=== PATIENT | female | born 1975 | race Caucasian/White ===

== ENCOUNTER 2017-07-21 09:03 | Emergency (ER) | payer BC, OTHER ==
[2017-07-21] MEDS ORDERED: Albuterol 2.5 MG/3 ML NEB.SOL* (0.083%) INH ONE (10:38)
[2017-07-21] MEDS ORDERED: Ipratropium 0.5MG/2.5ML NEB* 0.5 MG/2.5 ML NEB.SOLN INH ONE (10:38)
[2017-07-21 11:44] VITALS: BP 150/96
--- NOTE | 2017-07-21 13:17 | UC ---
Olga Goncalves Thomas, scribed for Haley Epps DO on 07/21/17 at 1044 . Cardiac HPI - HPI Summary HPI Summary: The patient is a 42 year old female who reports a baseline dry cough that has been present for years. She has the cough year-round and it is worsened with the cold. She has tried inhalers, nasal sprays, and OTC allergy medication to no relief. In the last few days, her cough has considerably worsened. She comes in today complaining of left-sided chest pain and mild shortness of breath. She also complains of nasal congestion and a sore throat. She denies sinus pressure , ear ache, headache, nausea, vomiting, abdominal pain, and urinary symptoms. - History of Current Complaint Chief Complaint: UCGeneralIllness Stated Complaint: COUGH SHORT OF BREATH Time Seen by Provider: 07/21/17 09:07 Hx Obtained From: Patient Hx Last Menstrual Period: 07/17/17 Onset/Duration: Still Present, Worse Since - last few days Pain Intensity: 4 Chest Pain Location: Discrete at: - left-sided Aggravating Factor(s): Other - Cold Alleviating Factor(s): Nothing Associated Signs & Symptoms: Positive: Chest Pain, SOB, Cough - Allergy/Home Medications Allergies/Adverse Reactions: Allergies Allergy/AdvReac Type Severity Reaction Status Date / Time oxycodone Allergy Hives Verified 07/21/17 09:13 Home Medications: Home Medications Escitalopram Oxalate [Lexapro 10 mg] 10 mg PO DAILY 07/21/17 [History Confirmed 07/21/17] PMH/Surg Hx/FS Hx/Imm Hx Endocrine History: Other Other Endocrine History: NEGATIVE: DM Respiratory History: Other Other Respiratory History: Chronic cough - Surgical History Surgical History: Yes Surgery Procedure, Year, and Place: 3 c-sections. cholecystectomy. Tubal ligation. umbilical hernia repair at 3mo. - Family History Known Family History: Positive: Hypertension - Social History Alcohol Use: Rare Substance Use Type: None Smoking Status (MU): Former Smoker Have You Smoked in the Last Year: No When Did the Patient Quit Smoking/Using Tobacco: 2007 - Immunization History Most Recent Influenza Vaccination: 2013 Most Recent Tetanus Shot: UTD Review of Systems ENT: Sore Throat, Nasal Discharge Respiratory: Shortness Of Breath, Cough Cardiovascular: Chest Pain Is Patient Immunocompromised?: No All Other Systems Reviewed And Are Negative: Yes Physical Exam - Summary Physical Exam Summary: Appearance: Well-Appearing, No Pain Distress, Well-Nourished Eyes: conjunctiva clear, no discharge ENT: Hearing grossly normal, no muffled/hoarse voice. She has suborbital congestion. Neck: Normal, Supple Respiratory/Lung Sounds: Scattered wheezes. No respiratory distress, No accessory muscle use Cardiovascular: RRR, No murmur Musculoskeletal: Normal Neurological: Alert, muscle tone normal Psychiatric:Normal, age appropriate behavior Skin: Normal, Warm, Dry, Normal color Triage Information Reviewed: Yes Vital Signs: Initial Vital Signs Temp 98.7 F 07/21/17 09:24 Pulse 85 07/21/17 09:24 Resp 18 07/21/17 09:24 BP 149/88 07/21/17 09:24 Pulse Ox 97 07/21/17 09:24 Vital Signs Reviewed: Yes Diagnostics - Laboratory Diagnostic Studies Completed/Ordered: EKG. Obtained at 0914. Sinus rhythm at [address] changes. Re-Evaluation - Re-Evaluation First Eval Change: Improved Comment: After nebulizer treatment, the patient's scattered wheezes are gone. - Assessment/Plan Course Of Treatment: The patient is a 42 year old female who reports a baseline dry cough that has been present for years. In the last few days, her cough has considerably worsened and she now complains of shortness of breath and left- sided chest pain. In the [facility] course the patient was given Ventolin and Atrovent. After nebulizer treatment, the patient's wheezes are gone. EKG shows sinus rhythm with no ST changes. Medications reviewed. Allergies reviewed. High blood pressure noted. Patient will be discharged with prescription for Ventolin and Mucinex and will follow up with PCP. The patient is agreeable with this plan. - Clinical Impression Provider Diagnoses: Allergies, Bronchospasm Discharge - Sign-Out/Discharge Documenting (check all that apply): Discharge/Admit/Transfer - Discharge Plan Condition: Stable Disposition: HOME Prescriptions: Albuterol HFA INHALER* [Ventolin HFA Inhaler*] 2 puff INH Q4H PRN #1 mdi PRN Reason: Sob/Wheezing guaiFENesin ER TAB [Mucinex*] 600 mg PO BID PRN #1 box PRN Reason: Cough Patient Education Materials: Allergies (ED), Bronchospasm (ED) Referrals: Melody Hoffman NP [Primary Care Provider] - If Needed Additional Instructions: TRY USING THE NETTI POT IN THE MORNINGS DISCUSSED. YOU MUST ALWAYS USE CLEAN WATER. REMEMBER, POSTURE IS AN IMPORTANT FACTOR IN SINUS DRAINAGE. MOVE YOUR NECK, BREATHE. INHALED BRONCHODILATORS: You have received a prescription for an inhaled bronchodilator -- a medication which stimulates the airways in the lung to dilate. This improves the flow of air in asthma, bronchitis, and emphysema. These medicines have some similarity to adrenaline, and can cause similar side effects: shakiness, racing heart, and a sense of nervousness. These side effects decrease with time. Contact your doctor if these side effects are severe. Do not over-use the medicine. Too-frequent use of the inhaler may make it ineffective. Call your doctor if the inhaler is not controlling your symptoms at the prescribed doses. BRING THE SPACER WE GAVE YOU TO THE PHARMACY WITH YOU SO THE PHARMACIST CAN SHOW YOU HOW TO USE IT. EXPECTORANT MEDICATION: WE SENT IN A SCRIPT FOR MUCINEX SO THAT IT IS EASIER FOR YOU TO PICK THE RIGHT MED AT THE PHARMACY. HOWEVER, YOU CAN ALSO GO TO THE [facility] AND BUY PLAIN GUAIFENESIN WITHOU BINDERS OR FILLERS. An expectorant medicine has been prescribed. This type of drug makes mucous thinner, helping the sinuses, nose, and bronchial tubes to remain free of pus and mucous. Expectorants make a cough less severe and more comfortable, and help infected sinuses drain. In general, antihistamines defeat the purpose of the expectorant by making mucous thicker. They should be avoided unless specifically recommended by your physician. The documentation as recorded by the Olga palafox Thomas accurately reflects the service I personally performed and the decisions made by me, Haley Epps DO.
== END 2017-07-21 11:48 | disposition home or self-care (01) ==
LOC: UCEAST 09:03
DX: T78.40XA Allergy, unspecified, initial encounter (principal); J98.01 Acute bronchospasm; Z88.5 Allergy status to narcotic agent; Z87.891 Personal history of nicotine dependence
CPT/HCPCS: 93005; 99212; G0463

== ENCOUNTER 2018-10-02 08:49 | Emergency (ER) | payer BC, OTHER ==
--- OUTSIDE RECORDS SUMMARY | 2018-10-02 08:58 | XMS REPORT | Continuity of Care Document ---
:1975 External Reference #:[id number] Author Name Carolyn Del Cid Care Team Providers Name Role Phone Peri Zayas MD Primary Care Physician Unavailable Payers Date Identification Numbers Payment Provider Subscriber Policy Number: [id number] [employer] Peyman Chalino Wenceslao PayID: [id number] [address] [address] [place] [address] Problems Description No Active Problems Family History Date Family Member(s) Observation Comments Father Hypertension Hyperlipidemia Mother Hypertension Siblings 3 Brothers Social History Type Date Description Comments Sex Unknown Marital Status Single ETOH Use Currently consumes alcohol 1 per week Tobacco Use Start: Unknown End: Patient is a former smoker Quit age 31; max 3-4 Unknown cigarettes/weekend in social situations. Began age 24 Tobacco Use Start: Unknown End: Patient is a former smoker Unknown Smoking Status Reviewed: 09/26/18 Patient is a former smoker Allergies, Adverse Reactions, Alerts Active Allergies Reaction Severity Comments Date Percocet Nausea and Vomiting, Urticaria Severe 04/29/2011 Medications Active Medications SIG Qnty Indications Ordering Date Provider Asmanex HFA 2 inhalations twice Margot Mays NP 12/01/2016 daily (sample) 200mcg/Act Aerosol Fluticasone Use 2 Sprays Into 16units Margot Mays NP 12/01/2016 Propionate Each Nostril Daily 50mcg/Act Suspension Alprazolam one by mouth up to 20tabs F41.9 Melody Varlily, 06/24/2016 0.25mg three times daily N.P. Tablets as needed for anxiety Escitalopram Oxalate Take 1 Tablet By 30tabs F32.9 Melody Varlily, 2016 Mouth Every Day N.P. 10mg Tablets Ibuprofen po qday Melody Hoffman, 12/18/2012 600mg N.P. History Medications Sumatriptan use at onset of 12tabs 346.90 Melody Hoffman, 12/18/2012 - Succinate head ache,july N.P. 08/26/2015 100mg repeat after 2h Tablets prn, max 2 tab in 24 hour Topiramate one po hs 30tabs 346.90 Melody Iglesiaslily, 12/18/2012 - 50mg N.P. 08/26/2015 Tablets Sumatriptan take 1 tablet by 16tabs 346.90 Melody Iglesiaslily, 11/09/2012 - Succinate mouth if needed N.P. 12/18/2012 50mg --- max 4/day Tablets and 16/ Ondansetron HCL one by mouth 30tabs 346.90 Melody Hoffman, 11/09/2012 - 4mg every 8 hours as N.P. 12/18/2012 Tablets needed for nausea No Active Unknown 05/05/2011 - Medications 11/09/2012 Azithromycin two tabs day 6tabs 462 Peri Marquez, 04/29/2011 - 250mg one, one daily M.D. 05/05/2011 Tablets till gone Naproxen 1 po prn 60tabs Unknown - 500mg 12/18/2012 Tablets Tramadol HCL 1 po prn 100tabs Unknown - 50mg 12/18/2012 Tablets Medications Administered in Office Medication SIG Qnty Indications Ordering Provider Date PPD Injection Nurse Visit A 03/30/2011 Immunizations CPT Code Status Date Vaccine Lot # [id number] Given 11/23/2016 Influenza Virus Vaccine, Quadrivalent, Split, [id number] Preservative Free [id number] Given 06/27/2006 Tdap - Tetanus/Diptheria/Acellular Pertussis [id number] Given 06/27/2006 Tdap - Tetanus/Diptheria/Acellular Pertussis Vital Signs Date Vital Result Comment 09/26/2018 2:07pm Height 68.5 inches 5'8.50" Weight 228.00 lb Heart Rate 90 /min BP Systolic Sitting 131 mmHg BP Diastolic Sitting 88 mmHg Body Temperature 98.3 F O2 % BldC Oximetry 97 % BMI (Body Mass Index) 34.2 kg/m2 09/27/2017 8:19am Height 68.5 inches 5'8.50" Weight 219.75 lb Heart Rate 89 /min BP Systolic 114 mmHg BP Diastolic 76 mmHg Body Temperature 97.5 F O2 % BldC Oximetry 97 % BMI (Body Mass Index) 32.9 kg/m2 09/12/2017 3:36pm Height 68.5 inches 5'8.50" Weight 220.00 lb Heart Rate 99 /min BP Systolic 124 mmHg BP Diastolic 78 mmHg Body Temperature 98.4 F O2 % BldC Oximetry 98 % BMI (Body Mass Index) 33.0 kg/m2 12/01/2016 9:27am Weight 213.00 lb Heart Rate 89 /min BP Systolic Sitting 124 mmHg BP Diastolic Sitting 86 mmHg Body Temperature 98.5 F O2 % BldC Oximetry 98 % 11/23/2016 2:46pm Height 69 inches 5'9" Weight 214.25 lb Heart Rate 98 /min BP Systolic Sitting 122 mmHg BP Diastolic Sitting 86 mmHg Body Temperature 98.2 F O2 % BldC Oximetry 99 % BMI (Body Mass Index) 31.6 kg/m2 06/24/2016 4:19pm Weight 214.50 lb Heart Rate 102 /min BP Systolic 142 mmHg BP Diastolic 90 mmHg Body Temperature 97.3 F O2 % BldC Oximetry 99 % 08/26/2015 3:55pm Weight 221.00 lb Heart Rate 96 /min BP Systolic Sitting 126 mmHg BP Diastolic Sitting 84 mmHg Respiratory Rate 15 /min Body Temperature 98.2 F O2 % BldC Oximetry 98 % 12/18/2012 9:16am Weight 225.25 lb Heart Rate 88 /min BP Systolic 130 mmHg BP Diastolic 68 mmHg 11/09/2012 9:41am Weight 227.00 lb Heart Rate 82 /min BP Systolic Sitting 126 mmHg BP Diastolic Sitting 84 mmHg 05/05/2011 11:18am Height 69 inches 5'9" Weight 213.00 lb Heart Rate 104 /min BP Systolic Sitting 136 mmHg BP Diastolic Sitting 68 mmHg Body Temperature 99.0 F BMI (Body Mass Index) 31.5 kg/m2 04/29/2011 10:38am Height 69 inches 5'9" Weight 213.50 lb Heart Rate 64 /min BP Systolic Sitting 110 mmHg BP Diastolic Sitting 74 mmHg Body Temperature 98.3 F BMI (Body Mass Index) 31.5 kg/m2 08/11/2010 2:23pm Height 69 inches 5'9" Weight 207.00 lb Heart Rate 76 /min BP Systolic 120 mmHg BP Diastolic 84 mmHg Body Temperature 76.0 F BMI (Body Mass Index) 30.6 kg/m2 Results Test Date Facility Test Result H/L Range Note Urine Culture And 09/27/2017 [facility] Urine Culture SEE RESULT 1, [address] [place] [address] [phone] Ua Routine 09/27/2017 [facility] Ua Specific [address] [place] Ua PH 5 Ua Color lamar Ua Appera clear Ua WBC negative Ua Protein trace Ua Glucose negative Ua Ketones negative Ua Bilirubin negative Ua Urobilinogen negative Ua Nitrite negative Ua Occult Blood 50 CBC Auto Diff 09/12/2017 [facility] White Blood 10.3 10^3/uL N 3.5-10.[address] [place] [address] [phone] Red Blood Count 4.62 10^6/uL N 4.00-5.40 Hemoglobin 11.9 g/dL Low 12.0-16.0 Hematocrit 36 % N 35-47 Mean Corpuscular Volume 78 fL Low 80-97 Mean Corpuscular Hemoglobin 26 pg Low 27-31 Mean Corpuscular HGB Conc 33 g/dL N 31-36 Red Cell Distribution Width 17 % High 10.5-15 Platelet Count 238 10^3/uL N 150-450 Mean Platelet Volume 9.0 um3 N 7.4-10.4 Abs Neutrophils 6.9 10^3/uL N 1.5-7.7 Abs Lymphocytes 2.6 10^3/uL N 1.0-4.8 Abs Monocytes 0.5 10^3/uL N 0-0.8 Abs Eosinophils 0.2 10^3/uL N 0-0.6 Abs Basophils 0.1 10^3/uL N 0-0.2 Abs Nucleated RBC 0 10^3/uL Granulocyte % 67.1 % N 38-83 Lymphocyte % 25.6 % N 25-47 Monocyte % 4.6 % N 0-7 Eosinophil % 1.9 % N 0-6 Basophil % 0.8 % N 0-2 Nucleated Red Blood Cells % 0 Comp Metabolic Panel 09/12/2017 [facility] Sodium 138 mmol/L N 135-[address] [place] [address] [phone] Potassium 4.0 mmol/L N 3.5-5.0 Chloride 104 mmol/L N 101-111 Co2 Carbon Dioxide 27 mmol/L N 22-32 Anion Gap 7 mmol/L N 2-11 Glucose 103 mg/dL High 70-100 Blood Urea Nitrogen 13 mg/dL N 6-24 Creatinine 0.95 mg/dL N 0.51-0.95 BUN/Creatinine Ratio 13.7 N 8-20 Calcium 9.3 mg/dL N 8.6-10.3 Total Protein 7.3 g/dL N 6.4-8.9 Albumin 4.1 g/dL N 3.2-5.2 Globulin 3.2 g/dL N 2-4 Albumin/Globulin Ratio 1.3 N 1-3 Total Bilirubin 0.40 mg/dL N 0.2-1.0 Alkaline Phosphatase 47 U/L N 34-104 Alt 12 U/L N 7-52 Ast 14 U/L N 13-39 Egfr Non- 65.2 >60 Egfr 78.8 >60 3 Laboratory test 09/12/2017 [facility] C Reactive 1.09 mg/L N < 8.[address] [place] [address] [phone] Erythrocyte Sed Rate 17 mm/Hr High 0-14 Rapid Influenza 06/29/2015 [facility] Influenza A NEGATIVE N Negative 4 A & B Molecular [address] [place] [address] [phone] Influenza B Molecular NEGATIVE N Negative Laboratory test 06/29/2015 [facility] Rapid Strep Negative N Negative [address] [place] [address] [phone] CBC With Manual 12/24/2012 [facility] White Blood 7.9 10^3/uL 4.8-10.[address] [place] [address] [phone] Red Blood Count 4.80 10^6/uL 4.0-5.4 Hemoglobin 13.9 g/dL 12.0-16.0 Hematocrit 43 % 35-47 Mean Corpuscular Volume 89 fL 80-97 Mean Corpuscular Hemoglobin 29 pg 27-31 Mean Corpuscular HGB Conc 33 g/dL 31-36 Red Cell Distribution Width 13 % 10.5-15 Platelet Count 201 10^3/uL 150-450 Mean Platelet Volume 9 um3 7.4-10.4 Abs Neutrophils 4.6 10^3/uL 1.5-7.7 Abs Lymphocytes 2.7 10^3/uL 1.0-4.8 Abs Monocytes 0.4 10^3/uL 0-0.8 Abs Eosinophils 0.2 10^3/uL 0-0.6 Abs Basophils 0 10^3/uL 0-0.2 Abs Nucleated RBC 0.01 10^3/uL Neutrophil % 60 % 38-83 Lymphocytes % 30 % 25-47 Monocytes % 7 % 0-13 Eosinophils % 1 % 0-6 Basophil % 1 % 0-2 Reactive Lymph % 1 % 0-6 RBC Morphology Normal Normal Laboratory test 12/24/2012 [facility] TSH (Thyroid 2.24 0.34- 5.60 6 finding 101 [facility] Stimulating miu/[place] [address] Horm) [phone] Follicle Stimulating Hormone 6.53 miu/mL 7 Laboratory test 04/29/2011 [facility] Monospot POSITIVE Abnormal Negative finding [address] [place] [address] [phone] Comp Metabolic 05/18/2010 [facility] Sodium 135 mmol/L 135- 145 Panel [address] [place] [address] [phone] Potassium 4.3 mmol/L 3.5-5.0 Chloride 108 mmol/L 101-111 Co2 (Carbon Dioxide) 20.0 mmol/L Low 22-32 Anion Gap 7.0 mmol/L 2-11 8 Glucose 94 mg/dL 70-100 BUN 11 mg/dL 6-24 Creatinine 1.00 mg/dL 0.50-1.40 One Over Creatinine 1.00 BUN/Creatinine Ratio 11.0 8-20 Calcium 9.3 mg/dL 8.1-9.9 Total Protein 7.3 GM/DL 6.2-8.1 Albumin 3.8 GM/DL 3.6-5.4 Globulin 3.5 GM/DL 2-4 Albumin/Globulin Ratio 1.1 1-3 Bilirubin Total 0.4 mg/dL 0.4-1.5 9 Alkaline Phosphatase 66 U/L 30-110 Alt (SGPT) 18 U/L 14-54 Ast (Sgot) 17 U/L 12-42 eGFR Non- 64.3 > 60 eGFR 82.6 > 60 10 Laboratory test finding 05/18/2010 [facility] Amylase 70 U/L 20-[address] [place] [address] [phone] Lipase 28 U/L 22-51 CBC Auto Diff 05/18/2010 [facility] White Blood 10.0 CUMM 4.8 -10.[address] [place] [address] [phone] Red Cell Count 4.70 CUMM 4.2-5.4 Hemoglobin 13.6 g/dL 12.0-16.0 Hematocrit 40 % 35-47 Mean Corpuscular Volume 84 um3 79-97 Mean Corpuscular Hemoglob 29 pg 27-31 Mean Corpuscular HGB Cone 34 g/dL 32-36 Redcell Distribution WDTH 14 % 10.5-15 Platelet Count 212 CUMM 150-450 Mean Platelet Volume 9.2 um3 7.4-10.4 12 Manual Differential 05/18/2010 [facility] Polysegmented 72 % 38-[address] [place] [address] [phone] Lymphocyte 25 % 25-47 Monocyte 3 % 0-13 Absolute Neutrophil Count 7.2 Anisocytosis SLIGHT Ovalocytes FEW H. Pylori 05/18/2010 [facility] H. Pylori Igg <0.75 Index () [address] [place] [address] [phone] H. Pylori Igm AB Positive Negative H. Pylori Iga AB Negative Negative 1 [id number] 2 SEE RESULT BELOW Name: MASSIEL QUINONES : [address]: Melody Hoffman NP Acct: [id number] Unit: [id number] AGE: 42 Location: [facility] Re09/27/17 SEX: F Status: REG REF SPEC: [id number] ANDREW: 09/27/17-[address]: Melody Hoffman NP REQ: [id number] RECD: 09/27/17-1103 STATUS: COMP _ SOURCE: URINE SPDESC: ORDERED: Urine Culture COMMENTS: [id number] Procedure Result Reported Site Urine Culture Final 09/28/17- 1334 ML No Growth (<1,000 CFU/mL) * ML - Main Lab . END OF REPORT DEPARTMENT OF PATHOLOGY, [address] [place] [id number] Aydin Gregorio M.D. Director [facility] # [id number] 3 Because ethnic data is not always readily available, this report includes an eGFR for both -Americans and non- Americans. The National Kidney Disease Education Program (NKDEP) does not endorse the use of the MDRD equation for patients that are not between the ages of 18 and 70, are , have extremes of body size, muscle mass, or nutritional status, or are non- or non-. According to the National Kidney Foundation, irrespective of diagnosis, the stage of the disease is based on the level of kidney function: Stage Description GFR(mL/min/1.73 m(2)) 1 Kidney damage with normal or decreased GFR 90 2 Kidney damage with mild decrease in GFR 60-89 3 Moderate decrease in GFR 30-59 4 Severe decrease in GFR 15-29 5 Kidney failure <15 (or dialysis) 4 Weather Algorithm Scientist: DESI ORDONEZ 5 Weather Algorithm Scientist: DESI ORDONEZ Due to the increased sensitivity of molecular testing, reflex cultures are no longer performed. 6 PLEASE GET DONE ON DAY 3 OF PERIOD 7 Normally menstruating females - Follicular phase 3 - 9 - Mid-cycle peak 4 - 23 - Luteal phase 1 - 6 Postmenopausal females 16 - 114 8 Anion gap measurement may be of limited value in the presence of any alkalosis, especially in a combined acid base disorder. . 9 A metabolite of Naproxen, O-desmethylnaproxen, has been shown to interfere with the Jendrassik-Ari method for measuring total bilirubin. Samples from patients who have taken Naproxen have shown spurious elevation in total bilirubin levels. 10 Because ethnic data is not always readily available, this report includes an eGFR for both -Americans and non- Americans. The National Kidney Disease Education Program (NKDEP) does not endorse the use of the MDRD equation for patients that are not between the ages of 18 and 70, are , have extremes of body size, muscle mass, or nutritional status, or are non- or non-. According to the National Kidney Foundation, irrespective of diagnosis, the stage of the disease is based on the level of kidney function: Stage Description GFR(mL/min/1.73 m(2)) 1 Kidney damage with normal or decreased GFR 90 2 Kidney damage with mild decrease in GFR 60-89 3 Moderate decrease in GFR 30-59 4 Severe decrease in GFR 15-29 5 Kidney failure <15 (or dialysis) 11 PLEASE NOTE NEW REFERENCE RANGE. 12 Imm. NE 1 13 -- REFERENCE VALUE -- <0.75 (negative) 0.75-0.99 (equivocal) >=1.00 (positive) Test Performed by: [facility] Dpt of Lab Med and Pathology [address] [place] [address] Chair Maker: Roberto Garcia III, M.D. Encounters Type Date Location Provider Dx Diagnosis Office Visit 09/27/2017 [facility] Melody Hoffman, R10.84 Generalized 8:40a Medicine - [facility] N.P. abdominal pain R31.9 Hematuria, unspecified Office Visit 09/12/2017 3:40p [facility] Melody Hoffman, R10.10 Upper abdominal Medicine - N.P. pain, unspecified [facility] Office Visit 12/01/2016 9:20a [facility] Zbigniew Mays NP R05 Cough Medicine - [facility] H61.23 Impacted cerumen, bilateral Office Visit 11/23/2016 2:40p Michelle [facility] [place] R05 Cough Medicine-Neel Torres M.D. Z23 Encounter for immunization Office Visit 06/24/2016 4:00p [facility] Melody Hoffman, F32.9 Major depressive Medicine - N.P. disorder, single [facility] episode, unspecified F41.9 Anxiety disorder, unspecified Office Visit 08/26/2015 4:00p [facility] Melody Hoffman, R19.7 Diarrhea, Medicine - N.P. unspecified [facility] Office Visit 12/18/2012 9:20a [facility] Melody Hoffman, 346.90 Migraine Unspec Medicine - N.P. W/O Intractable [facility] W/O Status Migrainosus 780.79 Malaise And Fatigue Other Office Visit 11/09/2012 9:40a [facility] Melody Hoffman, 346.90 Migraine Unspec W/O Medicine - N.P. Intractable W/O [facility] Status Migrainosus Office Visit 05/05/2011 11:20a [facility] Melody Varn, 075 Mononucleosis Medicine - N.P. Infectious [facility] Office Visit 04/29/2011 10:40a [facility] Melody Varn, 462 Pharyngitis Acute Medicine - N.P. [facility] Office Visit 08/11/2010 1:40p DO Not Use Melody Varn, 382.9 Otitis Media Unspec [facility] N.P. Office Visit 08/15/2008 1:15p DO Not Use Melody Varn, 599.70 Hematuria, Sales [facility] N.P. Unspecified Office Visit 04/09/2007 10:30a DO Not Use Melody Varn, 079.99 Viral Infection [facility] N.P. Unspec Office Visit 03/26/2007 11:45a DO Not Use Melody Varn, 462 Pharyngitis Acute [facility] [facility] Office Visit 03/23/2007 9:45a DO Not Use [facility], 462 Pharyngitis [facility] FACP Office Visit 06/27/2006 10:15a DO Not Use Melody Varn, V72.31 Routine Stars Analytical Lead [facility] [facility]. Examination 784.0 Headache 723.1 Cervicalgia 599.7 Hematuria 311 Depressive Disorder Not Elsewhere Spec V06.1 Vnpsfeapcl-Dfgwlmv-Mepdopcn Combined (DTaP) Office Visit 12/27/2005 DO Not Use Melody Varn, 564.00 Constipation 10:00a [facility] [facility] Unspecified Office Visit 10/14/2005 DO Not Use [place], 311 Depressive 2:15p [facility] Disorder Not Elsewhere Spec Plan of Treatment Future Appointment(s):03/12/2019 1:00 pm - Melody Varn, N.P. at [facility] Medicine - [facility]09/26/2018 - Melody Varn, N.P.H10.89 Other conjunctivitisComments:I believe your eye is getting irritated from your lashes. I would like you try patching your eye when sleeping. If you should get worse, or if it dos not improve, I want you to see your eyeglass fitter.
[2018-10-02 09:02] VITALS: BP 137/95
--- NOTE | 2018-10-02 09:13 | UC ---
Eye Complaint HPI - HPI Summary HPI Summary: Patient is a 43-year-old female here with left eye redness and drainage. Patient's had redness in her left eye since Monday where she went to see her primary care doctor who thought she was suffering from eyelash irritation. Patient was placed on any medications but has been doing [id number] eyedrops at home. Patient's had clear drainage from her eye. Patient has no change in vision, does not wear contacts, had no trauma to her eye. Patient has no purulent drainage. Patient has no dizziness. Patient does have some mild photophobia. Patient's medications were reviewed - History of Current Complaint Chief Complaint: UCEye Stated Complaint: LT EYE Time Seen by Provider: 10/02/18 09:05 Hx Obtained From: Patient Hx Last Menstrual Period: 09/10/18 Onset/Duration: Sudden Onset Timing: Constant Pain Intensity: 7 - Allergies/Home Medications Allergies/Adverse Reactions: Allergies Allergy/AdvReac Type Severity Reaction Status Date / Time oxycodone Allergy Hives Verified 10/02/18 09:02 PMH/Surg Hx/FS Hx/Imm Hx Previously Healthy: Yes - Surgical History Surgical History: Yes Surgery Procedure, Year, and Place: 3 c-sections. cholecystectomy. Tubal ligation. umbilical hernia repair at 3mo. - Family History Known Family History: Positive: Hypertension - Social History Occupation: Employed Full-time Alcohol Use: Rare Substance Use Type: None Smoking Status (MU): Former Smoker Have You Smoked in the Last Year: No When Did the Patient Quit Smoking/Using Tobacco: 2007 - Immunization History Most Recent Influenza Vaccination: 2013 Most Recent Tetanus Shot: UTD Review of Systems All Other Systems Reviewed And Are Negative: Yes Eyes: Positive: Drainage, Eye Redness, Photophobia. Negative: Blurred Vision, Diplopia ENT: Negative: Dental Pain Physical Exam - Summary Physical Exam Summary: Vital Signs Reviewed: Yes A+Ox3, no distress Eyes: Left by with erythematous conjunctiva. Pupil equal, round, reactive to light. Small amount of clear drainage. Extraocular movements intact. No surrounding periorbital edema or tenderness ENT: Hearing grossly normal neck: supple Respiratory: Positive: No respiratory distress, No accessory muscle use Cardiovascular: skin color reflect adequate perfusion Musculoskeletal Exam: LAUREANO x 4 without difficulty Neurological: Positive: Alert, ambulatory without difficulty Vital Signs: Initial Vital Signs Temp 98 F 10/02/18 08:58 Pulse 110 10/02/18 08:58 Resp 20 10/02/18 08:58 BP 137/95 10/02/18 08:58 Pulse Ox 100 10/02/18 08:58 Eye Complaint Course/Dx - Course Course Of Treatment: Patient is here with conjunctivitis of the left eye. Patient has no reflex symptoms of conjunctivitis and does not need further testing here. Patient was started on antibiotic drops and given an ship erector number. Patient had her questions answered and was comfortable at discharge. - Differential Dx/Diagnosis Differential Diagnosis/HQI/PQRI: Conjunctivitis, Corneal Abrasion, Foreign Body , Periorbital Cellulitis, Uveitis Provider Diagnosis: Conjunctivitis, bacterial Discharge - Sign-Out/Discharge Documenting (check all that apply): Patient Departure All imaging exams completed and their final reports reviewed: No Studies - Discharge Plan Condition: Stable Disposition: HOME Prescriptions: Polymyx/Trimethoprim OPTH* [Polytrim OPHTH*] 1 drop LEFT EYE Q3H 7 Days #1 btl Patient Education Materials: Conjunctivitis (ED) Forms: *Work Release Referrals: Melody Hoffman NP [Primary Care Provider] - Davin Man MD [Medical Doctor] - Additional Instructions: Please make sure to wash your hands after touching eyes Please continue to not wear makeup until your infection resolves Please use your drops as prescribed - Billing Disposition and Condition Condition: STABLE Disposition: Home
== END 2018-10-02 09:22 | disposition home or self-care (01) ==
LOC: UCEAST 08:49
DX: H10.89 Other conjunctivitis (principal); Z87.891 Personal history of nicotine dependence; Z88.5 Allergy status to narcotic agent
CPT/HCPCS: 99212; G0463